=== PATIENT | female | born 1965 | race Caucasian/White ===

== ENCOUNTER → 2018-05-13 09:28 | Outpatient (CLI) | payer OTHER, SELFPAY ==
--- NOTE | 2018-05-13 | DI.RAD.S_ITS ---
PROCEDURE: XR KUB INDICATIONS: KIDNEY STONES TECHNIQUE: One view of the abdomen acquired. COMPARISON: [facility], , KUB XRAY (1 VIEW ABDOMEN), 02/28/2018, 10:49. FINDINGS: Surgical changes and devices: None. Bowel: Bowel gas pattern is normal. Significant stool without obstruction. Soft tissues: The previously identified calcifications overlying the left renal shadow are unchanged. The calcifications overlying the right renal shadow are also unchanged. Calcifications within the pelvis are stable. Visualized solid organ contours appear normal in size. Bones: No suspicious bony lesions. IMPRESSION: Unchanged appearance of calcifications overlying the renal shadows bilaterally. Dictated by: Susie Sanchez M.D. on 05/13/2018 at 10:11 Approved by: Susie Sanchez M.D. on 05/13/2018 at 10:13
== END ==
PROVIDERS: Visit Provider Specialist
DX: N20.0 Calculus of kidney (principal)
CPT/HCPCS: 74018

== ENCOUNTER → 2018-08-01 11:21 | Outpatient (CLI) | payer OTHER, SELFPAY ==
--- NOTE | 2018-08-01 | DI.RAD.S_ITS ---
PROCEDURE: XR KUB INDICATIONS: KIDNEY STONES TECHNIQUE: One view of the abdomen acquired. COMPARISON: [facility], , XR KUB, 05/13/2018, 9:25. FINDINGS: Surgical changes and devices: None. Bowel: Bowel gas pattern is normal. Soft tissues: There are punctate calcific densities projecting over the bilateral renal silhouettes suggestive of nephrolithiasis, which are stable in comparison to exam of 05/13/18. Pelvic phleboliths are noted. Bones: No suspicious bony lesions. Mild degenerative changes of the spine. IMPRESSION: Stable bilateral punctate calcific densities projecting over the renal silhouettes suggestive of punctate bilateral nephrolithiasis. Dictated by: Mack Wang M.D. on 08/01/2018 at 17:15 Approved by: Mack Wang M.D. on 08/01/2018 at 17:20
== END ==
PROVIDERS: Visit Provider Specialist
DX: N20.0 Calculus of kidney (principal)
CPT/HCPCS: 74018

== ENCOUNTER → 2020-02-08 12:07 | Outpatient (CLI) | payer OTHER, SELFPAY ==
--- NOTE | 2020-02-08 | DI.MRI.S_ITS ---
PROCEDURE: MR ANKLE LT WO CON INDICATIONS: LEFT ANKLE INSTABILITY TECHNIQUE: Noncontrast sagittal T1 spin echo and T2 fast spin echo with fat saturation, axial proton density fast spin echo and T2 fast spin echo with fat saturation, coronal T1 spin echo and T2 fast spin echo with fat saturation through the ankle/hindfoot. COMPARISON: [facility], CR, XR ANKLE 3+ VIEWS LEFT, 12/21/2019, 11:20. FINDINGS: Image quality: Excellent. Bones and joints: No bone marrow contusions or fractures. No hindfoot coalitions. No osteochondral injuries of the talar dome. Tibiotalar joint effusion. Mild edema/T2 hyperintensity seen at the lateral aspect of the talonavicular joint of unclear etiology, possibly related to capsular sprain versus atypical synovial or ganglion cyst Medial structures: The posterior tibialis, flexor digitorum longus, and flexor hallucis longus tendons are intact. There is mild posterior tibialis tenosynovitis. The posterior tibial neurovascular bundle appears normal within the tarsal tunnel, without extrinsic mass effect. The deep layer of the deltoid ligament demonstrates mild T2 hyperintense amorphous signal change The spring ligament components (superomedial calcaneonavicular, medioplantar oblique calcaneonavicular, and inferoplantar longitudinal ligaments) are intact. Lateral structures: The anterior talofibular, calcaneofibular, and posterior talofibular ligaments appear intact. More superiorly, the anterior and posterior tibiofibular ligaments appear intact, as is the intermalleolar ligament. The tibiofibular syndesmosis is normal in width at 2 mm or less. The peroneus longus and brevis tendons demonstrate normal location and morphology. Adjacent bony peroneal tubercle and retrotrochlear prominence are normal in size. The sinus tarsi demonstrates normal fatty signal, without edema, fibrosis, or cyst formation. Visualized sinus tarsi components (cervical ligament, interosseous talocalcaneal ligament, roots of the inferior extensor retinaculum) appear normal. The calcaneonavicular and calcaneocuboid components of the bifurcate ligament appear intact. The dorsal calcaneocuboid ligament appears intact. Anterior structures: The tibialis anterior, extensor hallucis longus, and extensor digitorum longus tendons appear intact. The dorsal talonavicular ligament appears intact. Posterior and plantar structures: Achilles tendon is intact. There is minimal insertional tendinopathy and adjacent trace fluid. Medial and lateral bands of the plantar fascia are of normal thickness. No abductor digiti quinti muscle atrophy to suggest Ramirez neuropathy. IMPRESSION: Age-indeterminate sprain of the deltoid ligament complex Low-grade posterior tenosynovitis Ill-defined signal change involving the anterolateral aspect of the talonavicular joint, possibly capsular sprain versus developing or atypical synovial/ganglion cyst Minimal Achilles insertional tendinopathy Tibiotalar joint effusion. Dictated by: Yg Laguna M.D. on 02/08/2020 at 13:59 Approved by: Yg Laguna M.D. on 02/08/2020 at 14:11
== END ==
PROVIDERS: PCP Naturopath; Referring Provider Podiatrist; Visit Provider Podiatrist
DX: M25.372 Other instability, left ankle (principal); S93.422A Sprain of deltoid ligament of left ankle, initial encounter; M65.872 Other synovitis and tenosynovitis, left ankle and foot; M25.472 Effusion, left ankle
CPT/HCPCS: 73721

== ENCOUNTER 2020-08-15 01:13 | Observation (INO) | payer OTHER, SELFPAY ==
[2020-08-15] VITALS (12 sets, daily range): BP systolic 120–198; BP diastolic 76–106; PULSE 79–119; RESP 15–19; TEMP 36.3–37.2; O2SAT 95–100; BMI 25.2; BMI 23.6
--- NOTE | 2020-08-15 01:22 | DI.RAD.S_ITS ---
PROCEDURE: XR CHEST 1V INDICATIONS: Chest pain TECHNIQUE: One view of the chest was acquired. COMPARISON: None. FINDINGS: Surgical changes and devices: None. Lungs and pleura: Lungs are clear. No pleural effusions or pneumothorax. Mediastinum: Mediastinal contours appear normal. Heart size is normal. Bones and chest wall: No suspicious bony lesions. Overlying soft tissues appear unremarkable. IMPRESSION: No acute cardiopulmonary disease process. Dictated by: Helen Carcamo MD, PhD on 08/15/2020 at 8:54 Approved by: Helen Carcamo MD, PhD on 08/15/2020 at 8:56
--- NOTE | 2020-08-15 01:37 | ED_ITS ---
HPI - Arrhythmia/Palpitations General Chief Complaint: Arrhythmia/Palpitations Stated Complaint: states 127 plus heart beats Time Seen by Provider: 08/15/20 01:22 Source: patient and family Limitations: no limitations History of Present Illness HPI narrative: Patient here with . Complains sudden onset 2 hours ago of palpitations and slight discomfort intrascapular late which has resolved. She has an Apple watch and a registered at 165 beats per minute. No chest pain no syncope no dyspnea and no diaphoresis. Discomfort different from past kidney stone back pain. No nausea or vomiting. No urinary complaints. Patient did h ave foot surgery on left side back in April 2020. Has been doing well. Does have history of hypothyroidism and has resumed her thyroid medication levothyroxine without any dose changes in the past 2 months. No prior history of blood pressure or cholesterol or arrhythmias. Patient states unknown history with her family. No history DVT or PE. Patient did see her primary provider for thyroid level recheck today. MD complaint: rapid heart beat, heart racing and palpitations Related Data Home Medications Medication Instructions Recorded Confirmed acetaminophen [Tylenol Extra 1,000 mg PO Q8H 08/15/20 08/15/20 Strength] cyanocobalamin (vitamin B-12) 1,000 mcg PO DAILY 08/15/20 08/15/20 [Vitamin B-12] diclofenac sodium 75 mg PO BID 08/15/20 08/15/20 folic acid 0.4 mg PO DAILY 08/15/20 08/15/20 levothyroxine 50 mcg PO 0500 08/15/20 08/15/20 Allergies Allergy/AdvReac Type Severity Reaction Status Date / Time almond Allergy Verified 08/15/20 03:15 asparagus Allergy Verified 08/15/20 03:15 banana Allergy Verified 08/15/20 03:15 barley Allergy Verified 08/15/20 03:15 castillo Allergy Verified 08/15/20 03:15 Beef Containing Products Allergy Verified 08/15/20 03:15 casein Allergy Verified 08/15/20 03:15 cashew nut Allergy Verified 08/15/20 03:15 cinnamon Allergy Verified 08/15/20 03:15 Egg Derived Allergy Verified 08/15/20 03:15 gabapentin Allergy Verified 08/15/20 01:30 garlic Allergy Verified 08/15/20 03:15 alonso Allergy Verified 08/15/20 03:15 grass pollen-perennial rye, Allergy Verified 08/15/20 03:15 standar iodine Allergy Verified 08/15/20 01:30 lactase [From Dairy Aid] Allergy Verified 08/15/20 03:15 mushroom Allergy Verified 08/15/20 03:15 onion Allergy Verified 08/15/20 03:15 oyster extract Allergy Verified 08/15/20 03:15 Pork/Porcine Containing Allergy Verified 08/15/20 03:15 Products potato Allergy Verified 08/15/20 03:15 soy Allergy Verified 08/15/20 03:15 wheat Allergy Verified 08/15/20 03:15 whey Allergy Verified 08/15/20 03:15 brown rice Allergy Uncoded 08/15/20 03:15 dairy Allergy Uncoded 08/15/20 03:15 goat Allergy Uncoded 08/15/20 03:15 mar Allergy Uncoded 08/15/20 03:15 spelt Allergy Uncoded 08/15/20 03:15 Review of Systems Review of Systems Narrative: GENERAL: Denies chills, fatigue, malaise, fever, sweats. HEENT: Denies sinus pain, ear pain, sore throat, difficulty swallowing, dizziness. RESPIRATORY: Denies dyspnea, cough, wheezing, hemoptysis, sputum. CARDIOVASCULAR: Denies chest pain, complains palpitations, denies orthopnea, edema, GASTROINTESTINAL: Denies nausea, vomiting, abdominal pain, diarrhea, constipation, melena. : Denies dysuria, frequency, incontinence, hematuria, urinary retention. MUSCULOSKELETAL: denies weakness, joint pain, or bony pain SKIN: Denies rash, skin lesions NEUROLOGIC: Denies weakness, headache, numbness, change in speech, confusion, seizures, incoordination. PSYCHIATRIC: No concerning psychosocial issues. ROS Unobtainable: All systems reviewed & are unremarkable except as noted in HPI and below Patient History Surgical History Status post laparoscopy Social History household members: spouse Smoking Status: Never smoker alcohol intake: former Exam Narrative Exam Narrative: GENERAL: patient appears stated age. Well-nourished, well- developed patient, in no distress, not toxic HEAD: Atraumatic. Normocephalic. EYES: Pupils equal round and reactive. Extraocular motions intact. No scleral icterus. No injection or drainage. ENT: Nose without bleeding, purulent drainage. Throat without erythema, tonsi llar hypertrophy or exudate. Airway patent. NECK: Trachea midline. Non tender CARDIOVASCULAR: Tachycardia with Regular rate and rhythm without murmurs, gallops, or rubs. RESPIRATORY: Clear to auscultation. Breath sounds equal bilaterally. No wheezes, rales, or rhonchi. GASTROINTESTINAL: Abdomen soft, non-tender, nondistended. EXTREMITIES: No edema or joint tenderness. Left foot boot removed. No calf tenderness or edema or swelling. BACK: Nontender without deformity or crepitance. No flank tenderness. NEURO: AOx4. SKIN: No rash or erythema of visible areas PSYCH: Not anxious, is cooperative Initial Vital Signs Initial Vital Signs: Vital Signs Temperature 98.5 F 08/15/20 01:20 Pulse Rate 119 H 08/15/20 01:20 Respiratory Rate 17 08/15/20 01:20 Blood Pressure 198/106 H 08/15/20 01:20 Pulse Oximetry 98 08/15/20 01:20 Course Course Course Narrative: No chest pain or intrascapular discomfort at this time. Decision to Admit Date: 08/15/20 Decision to Admit time: 02:20 Orders Ordered: ED Orders 08/15/20 01:22 XR chest 1V Stat EKG-12 Lead Stat 08/15/20 01:30 Complete Blood Count AUTO DIFF Stat Comprehensive Metabolic Panel Stat D Dimer Stat Lipase Stat Thyroid Stimulating Hormone Stat Troponin & CK Cardiac Panel Stat 08/15/20 02:30 COVID19 -ED/INPAT/OR/L&D Stat Acetaminophen (Tylenol) 650 mg PO Q6HR PRN PRN Reason: Fever/Mild Pain (1-3) Acetaminophen (Tylenol) 975 mg PO Q8H PRN PRN Reason: Pain, Mild (1-3) Al Hydrox/Mg Hydrox/Simethicone (Maalox Plus) 30 ml PO Q6HR PRN PRN Reason: Dyspepsia Aspirin (Aspirin Ec) 81 mg PO DAILY YVES Bisacodyl (Dulcolax) 10 mg WV DAILY PRN PRN Reason: Constipation Calcium Carbonate (Tums) 1,000 mg PO Q4HR PRN PRN Reason: Dyspepsia Cyanocobalamin (Vitamin B-12) 1,000 mcg PO DAILY [facility] Diclofenac Sodium (Voltaren) 75 mg PO BID [facility] Docusate Sodium (Colace) 100 mg PO BID PRN PRN Reason: Constipation Enoxaparin Sodium (Lovenox) 40 mg SUBCUT DAILY [facility] Folic Acid (Folic Acid) 0.4 mg PO DAILY [facility] Sodium Chloride (Normal Saline 0.9%) 1,000 mls @ 100 mls/hr IV CONT YVES Last Admin: 08/15/20 03:18 Dose: 100 mls/hr Documented by: AMBER Levothyroxine Sodium (Synthroid) 50 mcg PO 0500 [facility] Magnesium Oxide (Mag Ox) 400 mg PO DAILY [facility] Morphine Sulfate (Morphine) 2 mg IV Q5MIN PRN PRN Reason: Chest Pain Naloxone HCl (Narcan) 0.2 mg IV Q2MIN PRN PRN Reason: Opiate Reversal Nitroglycerin (Nitrostat) 0.4 mg SL [id number] PRN PRN Reason: Chest Pain Ondansetron HCl (Zofran) 4 mg IV Q8HR PRN PRN Reason: Nausea And Vomiting Discontinued Medications Aspirin (Aspirin Chew) 324 mg PO NOW ONE Stop: 08/15/20 02:17 Last Admin: 08/15/20 02:36 Dose: 324 mg Documented by: DIAMOND Magnesium Oxide (Mag Ox) 400 mg PO NOW ONE Stop: 08/15/20 03:55 Last Admin: 08/15/20 04:08 Dose: 400 mg Documented by: AMBER Reevaluation(s) Reevaluation #1: No chest pain at this time. Blood pressures improved. Heart rate 101. D-dimer negative. Reviewed results with patient and . They agreed for observation and stress test Time: 02:20 Consultations Consultation #1: Spoke with cardiology dr dinh, agrees pt for admit Time: :20 Consultation #2: s/w hospitalistVargas, will admit Time: :20 Vital Signs Vital signs: Vital Signs - 8 hr 08/15/20 01:20 08/15/20 01:21 08/15/20 01:30 Temperature 98.5 F Pulse Rate 119 H 108 H 109 H Respiratory Rate 17 16 15 Blood Pressure 198/106 H Pulse Oximetry 98 100 99 08/15/20 01:31 08/15/20 02:00 08/15/20 02:30 Temperature Pulse Rate 110 H 93 H 94 H Respiratory Rate 17 17 19 Blood Pressure 182/96 H 129/80 139/90 Pulse Oximetry 97 98 98 MDM - Arrhythmia/Palpitations Differential Diagnosis Differential diagnosis: Likely palpitations, anxiety, sinus tachycardia, artial fibrillation, artial flutter, supraventricular tachycardia and other (PE) Lab Data Attestation: I reviewed the patient's lab results. Result diagrams: 08/15/20 01:30 08/15/20 01:30 Labs: Lab Results 08/15/20 08/15/20 08/15/20 Range/Units 01:30 01:30 01:30 WBC 8.6 (4.5-11.0) X10^3/uL RBC 3.95 L (4.0-5.2) X10^6/uL Hgb 12.9 (12.0-16.0) g/dL Hct 39.4 (36-46) % MCV 99.9 (80-100) fL MCH 32.6 (26-34) PG MCHC 32.6 (30-36) % RDW 12.7 (11.6-14.8) % Plt Count 321 (150-400) X10^3/uL Neut % (Auto) 90.8 H (50-75) % Lymph % (Auto) 7.9 L (25-40) % Stephenson % (Auto) 1.1 L (3-14) % Eos % (Auto) 0.0 L (2-4) % Baso % (Auto) 0.2 (0-2) % Neut # (Auto) 7900 H (1525-4146) /uL Lymph # (Auto) 700 L (2116-2648) /uL Stephenson # (Auto) 100 (0-900) /uL Eos # (Auto) 0 (0-450) /uL Baso # (Auto) 0 (0-100) /uL D-Dimer 210 (<230) ng/mL Sodium 137 (137-145) mmol/L Potassium 3.9 (3.4-5.1) mmol/L Chloride 101 (98-107) mmol/L Carbon Dioxide 27 (22-32) mmol/L BUN 19 H (7-17) mg/dL Creatinine 0.84 (0.52-1.04) mg/dL Estimated GFR > 60.0 (>60) mL/min BUN/Creatinine Ratio 22.6 H (6-22) Glucose 186 H (70-100) mg/dL Calcium 10.0 (8.4-10.2) mg/dL Magnesium (1.6-2.3) mg/dL Total Bilirubin 0.5 (0.2-1.3) mg/dL AST 51 H (14-36) IU/L ALT 40 H (<35) IU/L Alkaline Phosphatase 92 (38-126) U/L Total Creatine Kinase 68 (30-135) U/L CK-MB (CK-2) TNP CK-MB (CK-2) Rel Index TNP Troponin I < 0.012 (0.01-0.034) ng/mL Total Protein 8.5 H (6.3-8.2) g/dL Albumin 4.6 (3.5-5.0) g/dL Globulin 3.9 (1.7-4.1) g/dL Albumin/Globulin Ratio 1.2 (1.0-2.8) Lipase 181 (23-300) U/L TSH (0.47-4.68) uIU/mL COVID-19 PCR (Negative) 08/15/20 08/15/20 08/15/20 Range/Units 01:30 01:30 02:30 WBC (4.5-11.0) X10^3/uL RBC (4.0-5.2) X10^6/uL Hgb (12.0-16.0) g/dL Hct (36-46) % MCV (80-100) fL MCH (26-34) PG MCHC (30-36) % RDW (11.6-14.8) % Plt Count (150-400) X10^3/uL Neut % (Auto) (50-75) % Lymph % (Auto) (25-40) % Stephenson % (Auto) (3-14) % Eos % (Auto) (2-4) % Baso % (Auto) (0-2) % Neut # (Auto) (8965-4750) /uL Lymph # (Auto) (5347-8689) /uL Stephenson # (Auto) (0-900) /uL Eos # (Auto) (0-450) /uL Baso # (Auto) (0-100) /uL D-Dimer (<230) ng/mL Sodium (137-145) mmol/L Potassium (3.4-5.1) mmol/L Chloride (98-107) mmol/L Carbon Dioxide (22-32) mmol/L BUN (7-17) mg/dL Creatinine (0.52-1.04) mg/dL Estimated GFR (>60) mL/min BUN/Creatinine Ratio (6-22) Glucose (70-100) mg/dL Calcium (8.4-10.2) mg/dL Magnesium 1.8 (1.6-2.3) mg/dL Total Bilirubin (0.2-1.3) mg/dL AST (14-36) IU/L ALT (<35) IU/L Alkaline Phosphatase (38-126) U/L Total Creatine Kinase (30-135) U/L CK-MB (CK-2) CK-MB (CK-2) Rel Index Troponin I (0.01-0.034) ng/mL Total Protein (6.3-8.2) g/dL Albumin (3.5-5.0) g/dL Globulin (1.7-4.1) g/dL Albumin/Globulin Ratio (1.0-2.8) Lipase (23-300) U/L TSH 0.686 (0.47-4.68) uIU/mL COVID-19 PCR Negative (Negative) Imaging Data Chest x-ray: Attestation: I personally reviewed and interpreted this imaging study as follows: My Impression: No acute process ECG Data Attestation: I personally reviewed and interpreted this ECG as follows: Interpretation: Sinus tachycardia, ventricular rate 103. No ST elevation MDM Narrative Medical decision making narrative: Patient with atypical chest pain and palpitations and no prior history of high blood pressure. On none family history of coronary artery disease. Never had stress test before. Appropriate for admission to the hospital today for chemical stress test Discharge Plan Departure Patient Disposition: Admitted as Observation Clinical Impression: Sinus tachycardia, Atypical chest pain Discharge Date/Time: 08/15/20 02:41 Referrals: Brittney Velasquez [Primary Care Provider] - Admit Date/Time: 08/15/20 02:32 Admit Provider: Randy Ojeda
[2020-08-15 01:41] LABS: Add Manual Diff / Slide Review NO; Basophils Absolute Auto 0 /uL (0-100); Basophils Percent Auto 0.2 % (0-2); Eosinophils Absolute Auto 0 /uL (0-450); Hematocrit 39.4 % (36-46); Hemoglobin 12.9 g/dL (12.0-16.0); Lymphocytes Absolute Auto 700 /uL (1100-4500); Lymphocytes Percent Auto 7.9 % (25-40); Mean Corpuscular HGB Conc 32.6 % (30-36); Mean Corpuscular Hemoglobin 32.6 PG (26-34); Mean Corpuscular Volume 99.9 fL (80-100); Monocytes Absolute Auto 100 /uL (0-900); Monocytes Percent Auto 1.1 % (3-14); Neutrophils Absolute Auto 7900 /uL (1500-7000); Neutrophils Percent Auto 90.8 % (50-75); Platelet Count 321 X10^3/uL (150-400); Red Blood Cell Count 3.95 X10^6/uL (4.0-5.2); Red Cell Distribution Width 12.7 % (11.6-14.8); White Blood Cell Count 8.6 X10^3/uL (4.5-11.0)
[2020-08-15 01:50] LABS: D Dimer 210 ng/mL (<230)
[2020-08-15 01:52] LABS: Alanine Aminotransferase 40 IU/L (<35); Albumin 4.6 g/dL (3.5-5.0); Albumin Globulin Ratio 1.2 (1.0-2.8); Alkaline Phosphatase 92 U/L (38-126); Aspartate Aminotransferase 51 IU/L (14-36); BUN Creatinine Ratio 22.6 (6-22); Bilirubin Total 0.5 mg/dL (0.2-1.3); Blood Urea Nitrogen 19 mg/dL (7-17); Carbon Dioxide 27 mmol/L (22-32); Chloride 101 mmol/L (98-107); Creatine Kinase 68 U/L (30-135); Estimated Glomerular Filt Rate > 60.0 mL/min (>60); Globulin 3.9 g/dL (1.7-4.1); Glucose 186 mg/dL (70-100); HEMOLYSIS < 15 (0-50); Lipase 181 U/L (23-300); Potassium 3.9 mmol/L (3.4-5.1); Sodium 137 mmol/L (137-145); Total Protein 8.5 g/dL (6.3-8.2)
[2020-08-15 02:03] LABS: Troponin I < 0.012 ng/mL (0.01-0.034)
[2020-08-15 02:28] LABS: Thyroid Stimulating Hormone 0.686 uIU/mL (0.47-4.68)
[2020-08-15] MEDS: ASPIRIN 81 MG CHEW TAB 324 MG PO (02:36)
[2020-08-15 02:51] LABS: COVID19 -Nasal RAPID Negative (Negative)
[2020-08-15] MEDS: SODIUM CHLORIDE 0.9% 1,000 ML 100 ML IV ×2 (03:18→16:10)
[2020-08-15 03:27] LABS: Magnesium 1.8 mg/dL (1.6-2.3)
[2020-08-15] MEDS: MAGNESIUM OXIDE 400 MG TABLET PO ×2 (04:08→09:42)
[2020-08-15 04:14] LABS: Appearance Urine UA CLEAR; Bilirubin Urine UA NEGATIVE (NEGATIVE); Color Urine UA Straw; Glucose Urine UA NEGATIVE (Negative); Ketones Urine UA NEGATIVE (NEGATIVE); Leukocyte Esterase Urine UA NEGATIVE (NEGATIVE); Nitrite Urine UA NEGATIVE (Negative); Occult Blood Urine UA TRACE-LYSED (Negative); Protein Urine UA NEGATIVE (Negative); Specific Gravity Urine UA <=1.005 (1.000-1.035); Urobilinogen Urine UA 0.2 E.U./dL (0.2); pH Urine UA 6.5 (4.5-8.0)
[2020-08-15 04:15] LABS: Bacteria Urine Occasional (0-1); Culture Indicated Urine Cult Not Indicated; RBC Urine 0-1/HPF (0-5/HPF); Squamous Epithelial Cell Urine 0-1 /HPF (0-5/HPF); WBC Urine 0-1/HPF (0-5/HPF)
--- NOTE | 2020-08-15 04:32 | P.HP_ITS ---
History of Present Illness History of Present Illness Date Patient Seen: 08/15/20 Time Patient Seen: 03:42 Chief complaint: states 127 plus heart beats Narrative: Ms. Jose De Jesus chiu is a 54-year-old female with a past medical history significant for nephrolithiasis, hypothyroidism, Sjogren syndrome and chronic left ankle pain who presents to the ER tonight for complaints of rapid heartbeat. The patient states that she was reading in bed attempting to go sleep when she felt restless and uncomfortable feeling a rapid heartbeat. She put on her Apple watch which gown the heart rate at 130 given up to 165. She felt associated palpitations and feeling queasy. She also describes pain in the middle of her back which she clarifies is different from her previous kidney stone pain and is nonpleuritic and nonradiating. She states the episode lasted about 30 minutes prompting her to to call the triage phone line and sent to the ER for evaluation. The patient reports something somewhat similar occurring in 2004 for upon she was evaluated by cardiology and had an apparent Holter monitor of which the results appeared reassuring per patient report. Patient also has left ankle pain following surgery and April of 2020 for which she wears an orthotic boot and uses a knee scooter. She had a procedure today with injection at 4:00 p.m. and feels this may be participatory. Patient reports no recent fevers or chills, nasal congestion or sore throat. She has had no recent episodes of chest pain or palpitations until the episode tonight which was abrupt in onset. She denies shortness of breath, cough or wheezing. She denies abdominal pain and has known nausea vomiting but experience queasiness during her tachycardia. He has had no did changes in bowel habits but over the last few days has had urgency and frequency. Upon arrival to the ER the patient is afebrile with temperature 98.5?, heart rate of 119, blood pressure 198/106, respirations of 17 and room air saturation of 98%. Chest x-ray is obtained which is unremarkable, EKG finds sinus tachyc ardia [address] or T-wave changes and no Q-waves evident. On laboratory analysis she has white count of 8.6, hemoglobin of 12.9, hematocrit of 39.4 and platelets 321. She has mildly elevated neutrophils at 90.8%. She has a potassium of 3.9 and a BUN of 19 and creatinine is 0.84. Her nonfasting glucose is 186. Her liver functions are all within normal limits. Her D-dimer is 210, total CK is 68 and troponin is less than 0.012. Her thyroid stimulating hormone is 0.686. Dr. Beal is contacted through the emergency department [place] commands admitting the patient for atypical chest pain, aspirin, check troponins and obtain a stress test. The patient's administered aspirin 324 mg in the emergency department. The patient is admitted for the hospital service for further cardiac monitoring and evaluation. Patient History Medical History Hypothyroidism (Acute) Nephrolithiasis (Acute) Sjogren's syndrome (Acute) Surgical History History of exploratory laparotomy (Acute) History of foot surgery (Acute) History of lithotripsy (Acute) Status post laparoscopy Family & Social History Family History (Updated 08/15/20 @ 04:46 by MYRON Mckeon) Father Cancer Mother Obese Grandmother Diabetes mellitus Grandmother Thyroid disease Grandfather Structural disorder of heart Social History: household members spouse Prior Living Arrangements House Safety & Behavioral: Feels Safe in Current Yes Environment Been Physically Hurt or No Threatened By a Person Suicidal Ideation Description None Tobacco & Substance use: Smoking Status Never smoker alcohol intake former Substance Use Type does not use Meds Home Medications and Allergies Home Medications Medication Instructions Recorded Confirmed Type acetaminophen [Tylenol Extra 1,000 mg PO Q8H 08/15/20 08/15/20 History Strength] cyanocobalamin (vitamin B-12) 1,000 mcg PO DAILY 08/15/20 08/15/20 History [Vitamin B-12] diclofenac sodium 75 mg PO BID 08/15/20 08/15/20 History folic acid 0.4 mg PO DAILY 08/15/20 08/15/20 History levothyroxine 50 mcg PO 0500 08/15/20 08/15/20 History Allergies Allergy/AdvReac Type Severity Reaction Status Date / Time almond Allergy Verified 08/15/20 03:15 asparagus Allergy Verified 08/15/20 03:15 banana Allergy Verified 08/15/20 03:15 barley Allergy Verified 08/15/20 03:15 castillo Allergy Verified 08/15/20 03:15 Beef Containing Products Allergy Verified 08/15/20 03:15 casein Allergy Verified 08/15/20 03:15 cashew nut Allergy Verified 08/15/20 03:15 cinnamon Allergy Verified 08/15/20 03:15 Egg Derived Allergy Verified 08/15/20 03:15 gabapentin Allergy Verified 08/15/20 01:30 garlic Allergy Verified 08/15/20 03:15 alonso Allergy Verified 08/15/20 03:15 grass pollen-perennial rye, Allergy Verified 08/15/20 03:15 standar iodine Allergy Verified 08/15/20 01:30 lactase [From Dairy Aid] Allergy Verified 08/15/20 03:15 mushroom Allergy Verified 08/15/20 03:15 onion Allergy Verified 08/15/20 03:15 oyster extract Allergy Verified 08/15/20 03:15 Pork/Porcine Containing Allergy Verified 08/15/20 03:15 Products potato Allergy Verified 08/15/20 03:15 soy Allergy Verified 08/15/20 03:15 wheat Allergy Verified 08/15/20 03:15 whey Allergy Verified 08/15/20 03:15 brown rice Allergy Uncoded 08/15/20 03:15 dairy Allergy Uncoded 08/15/20 03:15 goat Allergy Uncoded 08/15/20 03:15 mar Allergy Uncoded 08/15/20 03:15 spelt Allergy Uncoded 08/15/20 03:15 Review of Systems Review of Systems ROS: Yes All systems reviewed with the patient and are negative except as otherwise documented Exam Vital Signs (past 8 hours): - 08/15/20 01:20 08/15/20 01:21 08/15/20 01:30 Temperature 98.5 F Pulse Rate 119 H 108 H 109 H Respiratory Rate 17 16 15 Blood Pressure 198/106 H Pulse Oximetry 98 100 99 08/15/20 01:31 08/15/20 02:00 08/15/20 02:30 Temperature Pulse Rate 110 H 93 H 94 H Respiratory Rate 17 17 19 Blood Pressure 182/96 H 129/80 139/90 Pulse Oximetry 97 98 98 08/15/20 02:40 Temperature 97.5 F L Pulse Rate 115 H Respiratory Rate 18 Blood Pressure 154/101 H Pulse Oximetry 100 Oxygen Delivery Method Room Air Oxygen Flow Rate 0 Narrative Exam Narrative: GENERAL APPEARANCE: well developed, well nourished, in no acute distress. HEENT: Normocephalic, PERRLA, conjunctiva clear, EOMs intact without nystagmus, no sinus tenderness to percussion, no rhinorrhea, mucous membranes are pink and moist NECK/THYROID: neck supple, no JVD, no thyromegaly, trachea midline. LYMPH NODES: no cervical or supraclavicular lymphadenopathy. SKIN: [place], warm and dry, no visible rashes HEART: regular rate and rhythm, S1-S2, no murmur, no rubs or gallops, brisk capillary refill, no edema LUNGS: clear to auscultation bilaterally, no coarseness crackles or wheezing, no cough present CHEST: Symmetrical movement, no accessory muscle use, good tidal volume. ABDOMEN: Soft, no distention, no abdominal tenderness, no guarding or peritoneal signs, no organomegaly, no flank or suprapubic tenderness, active bowel tones. BACK: Normal curvature, nontender to palpation, no CVA tenderness on percussion EXTREMITIES: Surgical scar left lateral malleolus, decreased movement left foot, can 1st and 2nd toes, no dorsal plantar flexion of left foot, right foot strength is 5/5. NEUROLOGIC: AAO x4, cranial nerves II-XII grossly intact, sensation intact to light touch, hearing grossly normal to speech. PSYCH: Anxious, somewhat tangential thought process, cooperative, stable behavior Objective Labs Result Diagrams: 08/15/20 01:30 08/15/20 01:30 Labs: Laboratory Results - last 24 hr 08/15/20 08/15/20 08/15/20 01:30 01:30 01:30 WBC 8.6 RBC 3.95 L Hgb 12.9 Hct 39.4 MCV 99.9 MCH 32.6 MCHC 32.6 RDW 12.7 Plt Count 321 Neut % (Auto) 90.8 H Lymph % (Auto) 7.9 L [place] % (Auto) 1.1 L Eos % (Auto) 0.0 L Baso % (Auto) 0.2 Neut # (Auto) 7900 H Lymph # (Auto) 700 L [place] # (Auto) 100 Eos # (Auto) 0 Baso # (Auto) 0 D-Dimer 210 Sodium 137 Potassium 3.9 Chloride 101 Carbon Dioxide 27 BUN 19 H Creatinine 0.84 Estimated GFR > 60.0 BUN/Creatinine Ratio 22.6 H Glucose 186 H Calcium 10.0 Magnesium Total Bilirubin 0.5 AST 51 H ALT 40 H Alkaline Phosphatase 92 Total Creatine Kinase 68 CK-MB (CK-2) TNP CK-MB (CK-2) Rel Index TNP Troponin I < 0.012 Total Protein 8.5 H Albumin 4.6 Globulin 3.9 Albumin/Globulin Ratio 1.2 Lipase 181 TSH Urine Color Urine Appearance Urine pH Ur Specific [place] Urine Protein Urine Glucose (UA) Urine Ketones Urine Occult Blood Urine Nitrate Urine Bilirubin Urine Urobilinogen Ur Leukocyte Esterase Urine RBC Urine WBC Ur Squamous Epith Cells Urine Bacteria Ur Culture Indicated? COVID-19 PCR 08/15/20 08/15/20 08/15/20 01:30 01:30 02:30 WBC RBC Hgb Hct MCV MCH MCHC RDW Plt Count Neut % (Auto) Lymph % (Auto) [place] % (Auto) Eos % (Auto) Baso % (Auto) Neut # (Auto) Lymph # (Auto) [place] # (Auto) Eos # (Auto) Baso # (Auto) D-Dimer Sodium Potassium Chloride Carbon Dioxide BUN Creatinine Estimated GFR BUN/Creatinine Ratio Glucose Calcium Magnesium 1.8 Total Bilirubin AST ALT Alkaline Phosphatase Total Creatine Kinase CK-MB (CK-2) CK-MB (CK-2) Rel Index Troponin I Total Protein Albumin Globulin Albumin/Globulin Ratio Lipase TSH 0.686 Urine Color Urine Appearance Urine pH Ur Specific [place] Urine Protein Urine Glucose (UA) Urine Ketones Urine Occult Blood Urine Nitrate Urine Bilirubin Urine Urobilinogen Ur Leukocyte Esterase Urine RBC Urine WBC Ur Squamous Epith Cells Urine Bacteria Ur Culture Indicated? COVID-19 PCR Negative 08/15/20 03:50 WBC RBC Hgb Hct MCV MCH MCHC RDW Plt Count Neut % (Auto) Lymph % (Auto) [place] % (Auto) Eos % (Auto) Baso % (Auto) Neut # (Auto) Lymph # (Auto) [place] # (Auto) Eos # (Auto) Baso # (Auto) D-Dimer Sodium Potassium Chloride Carbon Dioxide BUN Creatinine Estimated GFR BUN/Creatinine Ratio Glucose Calcium Magnesium Total Bilirubin AST ALT Alkaline Phosphatase Total Creatine Kinase CK-MB (CK-2) CK-MB (CK-2) Rel Index Troponin I Total Protein Albumin Globulin Albumin/Globulin Ratio Lipase TSH Urine Color Straw Urine Appearance Clear Urine pH 6.5 Ur Specific [place] <=1.005 Urine Protein Negative Urine Glucose (UA) Negative Urine Ketones Negative Urine Occult Blood Trace-lysed Urine Nitrate Negative Urine Bilirubin Negative Urine Urobilinogen 0.2 Ur Leukocyte Esterase Negative Urine RBC 0-1/hpf Urine WBC 0-1/hpf Ur Squamous Epith Cells 0-1 /hpf Urine Bacteria Occasional (0-1) Ur Culture Indicated? Cult not indicated COVID-19 PCR Assessment & Plan Assessment & Plan narrative: This is a 54-year-old female with a remote history of cardiac arrhythmia and presents to the ER tonight with an abrupt onset of a rapid heartbeat reportedly up to 165 tract on her Apple wrist watch which correlated with monitor upon arrival to the ER with associated palpitations, mid back pain and mild nausea. 1. Tachyarrhythmia, sinus tachycardia upon arrival to ER, present on admission, active -abrupt in onset while at rest, patient reports heart rate between 130s to 165, associated palpitations, mild nausea, pain mid back that is nonpleuritic nonradiating. -12 lead EKG finds sinus tach the ventricular rate of [address] or T-wave changes and no Q-waves. Initial troponin is negative at less than 0.012. -Dr. Beal his contact through the emergency department who recommends o vernight observation aspirin, rule out with troponins and a stress test in the morning. -patient received aspirin 324 mg in the emergency department, ordered aspirin 81 mg daily. -ordered troponins every 4 hours x2. -order nuclear med stress test will be chemically stressed due to inability to ambulate related to left ankle pain. -thyroid has been checked and found to 0.686, will obtain hemoglobin A1c. -stress test ordered, patient will be NPO. Ordered normal saline 100 cc/hour 2. Acquired hypothyroidism, stable -thyroid level checked and 0.8 686. -continue home regimen levothyroxine 50 mcg daily. 3. Sjogren syndrome, stable. -patient does not demonstrate symptoms of autonomic neuropathy. -tachyarrhythmia began at rest, will obtain orthostatic vital signs. VTE: Enoxaparin IV fluid: Normal saline 100 cc/hour Diet: NPO for cardiac testing Code status: Full code, patient designates her be surrogate decision maker. The patient is admitted to the hospital with atypical chest pain in the setting of tachyarrhythmia requiring further evaluation and monitoring. The patient is admitted as observation with expected length of stay to be less than 2 midnights. COVID-19 COVID-19 status: Negative Result date/Date tested (Pos, Neg/Pending): 08/15/20 Scores [facility] [place] coma scale eye opening: Spontaneous [place] coma scale verbal response: Orientated [place] coma scale motor response: Obey commands [place] coma scale total score: 15
[2020-08-15] MEDS: LEVOTHYROXINE 50 MCG TABLET PO (05:03)
[2020-08-15] MEDS: ACETAMINOPHEN 325 MG TABLET 975 MG PO ×2 (05:03→15:02)
--- NOTE | 2020-08-15 05:25 | PC.ADMIT ---
Patient admitted to room 219 per wheelchair from ER. Came to ER related to having heart palpitations with HR into 160 range. Currently HR 115 and BP elevated at 154/101. Is alert and oriented. Breath sounds CTA with RA sat of 100%; on continuous oximetry. HRR; telemetry reading at 0400 was SR w/1st degree AVB. Denies nausea. BT present and abdomen is soft. States she has been having some urinary frequency but denies dysuria; UA sent to lab for analysis. Is able to move herself in bed. [place] [facility] [place] Had surgery on left foot in April 2020 and now has limited ROM/strength in foot. States she had injections into foot/ankle yesterday and has some tingling/numbness of left foot. States pain in left foot/lower back is chronic and rates severity as 3/10. When up at home wears a brace/boot to left LE and uses crutches for mobility. Reports having fallen in late June so is at high risk for falls and bed alarm is activated. Bilateral calf SCD's applied. Is currently NPO as will be having a NM stress test later today; verbalizes understanding. Oriented to bed controls and call light. [id number] Admission Note: The patient,Jose De Jesus Burgos,54 y/o, was given written information regarding hospital policies, unit procedures and contact persons. Patient's smoking status: Never smoker. Vital Signs - 8 hr 08/15/20 01:20 08/15/20 01:21 08/15/20 01:30 Temperature 98.5 F Pulse Rate 119 H 108 H 109 H Respiratory Rate 17 16 15 Blood Pressure 198/106 H Pulse Oximetry 98 100 99 08/15/20 01:31 08/15/20 02:00 08/15/20 02:30 Temperature Pulse Rate 110 H 93 H 94 H Respiratory Rate 17 17 19 Blood Pressure 182/96 H 129/80 139/90 Pulse Oximetry 97 98 98 08/15/20 02:40 Temperature 97.5 F L Pulse Rate 115 H Respiratory Rate 18 Blood Pressure 154/101 H Pulse Oximetry 100
[2020-08-15 06:21] LABS: Cholesterol 195 mg/dL (140-199); HDL Cholesterol 70 mg/dL (40-60); LDL Cholesterol Calculated 115 mg/dL (<100); Triglycerides 50 mg/dL (35-150)
[2020-08-15 06:31] LABS: Troponin I < 0.012 ng/mL (0.01-0.034)
[2020-08-15] MEDS: DICLOFENAC 75 MG DR TABLET PO (09:42)
[2020-08-15] MEDS: ASPIRIN EC 81 MG TABLET PO (09:42)
[2020-08-15] MEDS: FOLIC ACID 0.4 MG TABLET PO (09:42)
[2020-08-15] MEDS: CYANOCOBALAMIN (VITAMIN B-12) 500 MCG TABLET 1000 MCG PO (09:42)
[2020-08-15] MEDS: ENOXAPARIN 40 MG/0.4 ML SYRINGE SUBCUT (09:43)
[2020-08-15 10:31] LABS: Troponin I < 0.012 ng/mL (0.01-0.034)
--- NOTE | 2020-08-15 11:04 | PC.NURSE ---
Patient denies pain or chest discomfort. She will be going down for the second part of her stress test at 1245. She has many allergies to foods and is talking with the golf cart maker now. Patient also had an ankle surgery in April and continues to be nwb, so she must wear her boot when she is up ambulating, except while using the commode.
--- NOTE | 2020-08-15 12:05 | CM.DANOTE ---
Addendum entered by Nika Lees LPN 08/15/20 12:13: A check in now shows pt preparing to go for 2nd part of stress test. Original Note: Discharge Planning/Care Management DCP: assessment: case received, EMR/limited info available/reviewed. Dr. Hobbs stated in Team Rounds that pt would have a stress test today and then likely a d/c home. He planned to meet with pt later. Pt is a 54 year old female who admitted early this morning to care of hospitalist team. Payer: Miriam Mayer PCP: listed as Brittney Velasquez Next of Kin: [place]. P: will follow prn after more is known to assist with any d/c needs that may arise. CM Discharge Assessment Start: 08/15/20 12:04 Freq: Status: Active Protocol: Document 08/15/20 12:05 ITV (Rec: 08/15/20 12:05 ITV [id number]) Discharge Planning Assessment Advance Directives? No History Provided By Medical Record Prior Living Arrangements House Household Members spouse Review Status In Process
--- NOTE | 2020-08-15 17:40 | PM.DS.1 ---
History of Present Illness History of Present Illness Date Patient Seen: 08/15/20 Time Patient Seen: 17:40 Chief complaint: states 127 plus heart beats Narrative: Ms. Jose De Jesus chiu is a 54-year-old female with a past medical history significant for nephrolithiasis, hypothyroidism, Sjogren syndrome and chronic left ankle pain who presents to the ER tonight for complaints of rapid heartbeat. The patient states that she was reading in bed attempting to go sleep when she felt restless and uncomfortable feeling a rapid heartbeat. She put on her Apple watch which gown the heart rate at 130 given up to 165. She felt associated palpitations and feeling queasy. She also describes pain in the middle of her back which she clarifies is different from her previous kidney stone pain and is nonpleuritic and nonradiating. She states the episode lasted about 30 minutes prompting her to to call the triage phone line and sent to the ER for evaluation. The patient reports something somewhat similar occurring in 2004 for upon she was evaluated by cardiology and had an apparent Holter monitor of which the results appeared reassuring per patient report. Patient also has left ankle pain following surgery and April of 2020 for which she wears an orthotic boot and uses a knee scooter. She had a procedure today with injection at 4:00 p.m. and feels this may be participatory. Patient reports no recent fevers or chills, nasal congestion or sore throat. She has had no recent episodes of chest pain or palpitations until the episode tonight which was abrupt in onset. She denies shortness of breath, cough or wheezing. She denies abdominal pain and has known nausea vomiting but experience queasiness during her tachycardia. He has had no did changes in bowel habits but over the last few days has had urgency and frequency. Upon arrival to the ER the patient is afebrile with temperature 98.5?, heart rate of 119, blood pressure 198/106, respirations of 17 and room air saturation of 98%. Chest x-ray is obtained which is unremarkable, EKG finds sinus tachycardia [address] or T-wave changes and no Q-waves evident. On laboratory analysis she has white count of 8.6, hemoglobin of 12.9, hematocrit of 39.4 and platelets 321. She has mildly elevated neutrophils at 90.8%. She has a potassium of 3.9 and a BUN of 19 and creatinine is 0.84. Her nonfasting glucose is 186. Her liver functions are all within normal limits. Her D-dimer is 210, total CK is 68 and troponin is less than 0.012. Her thyroid stimulating hormone is 0.686. Dr. Beal is contacted through the emergency department [place] commands admitting the patient for atypical chest pain, aspirin, check troponins and obtain a stress test. The patient's administered aspirin 324 mg in the emergency department. The patient is admitted for the hospital service for further cardiac monitoring and evaluation. Discharge Providers Provider Date of admission: 08/15/20 02:32 Discharge Date: 08/15/20 Primary care physician: Brittney Velasquez Discharge provider: Randy Hobbs DO Summary Hospital Course Discharge Diagnosis: 1. Sinus tachycardia, present on admission 2. Acquired hypothyroidism, stable 3. Sjogren syndrome, chronic, stable 4. Chronic L ankle pain, present on admission. Hospital Course: This is a 54-year-old female with a remote history of cardiac arrhythmia and presented to the ER with an abrupt onset of a rapid heartbeat reportedly up to 165 tract on her Apple wrist watch which correlated with monitor upon arrival to the ER with associated palpitations, mid back pain and mild nausea. The patient was resting in bed at the time of the event and her tachycardia continued for a few hours. Early in the day she had undergone an injection in her left ankle which included a cocktail of anti-inflammatories and pain medicines according to the patient. The patient also reports increased stress and anxiety. She underwent a cardiac stress test which was unremarkable and deemed low risk. At the recommendation of Cardiology she was started on a beta-ajit and will follow-up with her primary care provider. Patient's heart rate had improved even without medications on discharge. Exam Vital Signs (past 8 hours): - 08/15/20 10:37 08/15/20 11:00 08/15/20 15:32 Temperature 97.3 F L 97.7 F Pulse Rate 90 84 Pulse Rate [Orthostatic Lying] 79 Pulse Rate [Orthostatic Sitting] 90 Pulse Rate [Orthostatic Standing] 95 H Respiratory Rate 16 16 Blood Pressure 158/82 H 120/76 Blood Pressure [Orthostatic Lying] 141/91 H Blood Pressure [Orthostatic Sitting] 158/82 H Blood Pressure [Orthostatic Standing] 152/90 H Pulse Oximetry 100 95 Oxygen Delivery Method Room Air Oxygen Flow Rate 0 Narrative Exam Narrative: GENERAL APPEARANCE: well developed, well nourished, in no acute distress. HEENT: Normocephalic, PERRLA, conjunctiva clear, EOMs intact without nystagmus, no sinus tenderness to percussion, no rhinorrhea, mucous membranes are pink and moist NECK/THYROID: neck supple, no JVD, no thyromegaly, trachea midline. LYMPH NODES: no cervical or supraclavicular lymphadenopathy. SKIN: [place], warm and dry, no visible rashes HEART: regular rate and rhythm, S1-S2, no murmur, no rubs or gallops, brisk capillary refill, no edema LUNGS: clear to auscultation bilaterally, no coarseness crackles or wheezing, no cough present CHEST: Symmetrical movement, no accessory muscle use, good tidal volume. ABDOMEN: Soft, no distention, no abdominal tenderness, no guarding or peritoneal signs, no organomegaly, no flank or suprapubic tenderness, active bowel tones. BACK: Normal curvature, nontender to palpation, no CVA tenderness on percussion EXTREMITIES: Surgical scar left lateral malleolus, decreased movement left foot, can 1st and 2nd toes, no dorsal plantar flexion of left foot, right foot strength is 5/5. NEUROLOGIC: AAO x4, cranial nerves II-XII grossly intact, sensation intact to light touch, hearing grossly normal to speech. PSYCH: Anxious, somewhat tangential thought process, cooperative, stable behavior Objective Labs Result Diagrams: 08/15/20 01:30 08/15/20 01:30 Labs: Laboratory Results - last 24 hr 08/15/20 08/15/20 08/15/20 01:30 01:30 01:30 WBC 8.6 RBC 3.95 L Hgb 12.9 Hct 39.4 MCV 99.9 MCH 32.6 MCHC 32.6 RDW 12.7 Plt Count 321 Neut % (Auto) 90.8 H Lymph % (Auto) 7.9 L [place] % (Auto) 1.1 L Eos % (Auto) 0.0 L Baso % (Auto) 0.2 Neut # (Auto) 7900 H Lymph # (Auto) 700 L [place] # (Auto) 100 Eos # (Auto) 0 Baso # (Auto) 0 D-Dimer 210 Sodium 137 Potassium 3.9 Chloride 101 Carbon Dioxide 27 BUN 19 H Creatinine 0.84 Estimated GFR > 60.0 BUN/Creatinine Ratio 22.6 H Glucose 186 H Hemoglobin A1c Calcium 10.0 Magnesium Total Bilirubin 0.5 AST 51 H ALT 40 H Alkaline Phosphatase 92 Total Creatine Kinase 68 CK-MB (CK-2) TNP CK-MB (CK-2) Rel Index TNP Troponin I < 0.012 Total Protein 8.5 H Albumin 4.6 Globulin 3.9 Albumin/Globulin Ratio 1.2 Triglycerides Cholesterol LDL Cholesterol, Calc HDL Cholesterol Lipase 181 TSH Urine Color Urine Appearance Urine pH Ur Specific [place] Urine Protein Urine Glucose (UA) Urine Ketones Urine Occult Blood Urine Nitrate Urine Bilirubin Urine Urobilinogen Ur Leukocyte Esterase Urine RBC Urine WBC Ur Squamous Epith Cells Urine Bacteria Ur Culture Indicated? COVID-19 PCR 08/15/20 08/15/20 08/15/20 01:30 01:30 01:30 WBC RBC Hgb Hct MCV MCH MCHC RDW Plt Count Neut % (Auto) Lymph % (Auto) [place] % (Auto) Eos % (Auto) Baso % (Auto) Neut # (Auto) Lymph # (Auto) [place] # (Auto) Eos # (Auto) Baso # (Auto) D-Dimer Sodium Potassium Chloride Carbon Dioxide BUN Creatinine Estimated GFR BUN/Creatinine Ratio Glucose Hemoglobin A1c 5.0 Calcium Magnesium 1.8 Total Bilirubin AST ALT Alkaline Phosphatase Total Creatine Kinase CK-MB (CK-2) CK-MB (CK-2) Rel Index Troponin I Total Protein Albumin Globulin Albumin/Globulin Ratio Triglycerides Cholesterol LDL Cholesterol, Calc HDL Cholesterol Lipase TSH 0.686 Urine Color Urine Appearance Urine pH Ur Specific [place] Urine Protein Urine Glucose (UA) Urine Ketones Urine Occult Blood Urine Nitrate Urine Bilirubin Urine Urobilinogen Ur Leukocyte Esterase Urine RBC Urine WBC Ur Squamous Epith Cells Urine Bacteria Ur Culture Indicated? COVID-19 PCR 08/15/20 08/15/20 08/15/20 02:30 03:50 05:25 WBC RBC Hgb Hct MCV MCH MCHC RDW Plt Count Neut % (Auto) Lymph % (Auto) [place] % (Auto) Eos % (Auto) Baso % (Auto) Neut # (Auto) Lymph # (Auto) [place] # (Auto) Eos # (Auto) Baso # (Auto) D-Dimer Sodium Potassium Chloride Carbon Dioxide BUN Creatinine Estimated GFR BUN/Creatinine Ratio Glucose Hemoglobin A1c Calcium Magnesium Total Bilirubin AST ALT Alkaline Phosphatase Total Creatine Kinase CK-MB (CK-2) CK-MB (CK-2) Rel Index Troponin I < 0.012 Total Protein Albumin Globulin Albumin/Globulin Ratio Triglycerides 50 Cholesterol 195 LDL Cholesterol, Calc 115 H HDL Cholesterol 70 H Lipase TSH Urine Color Straw Urine Appearance Clear Urine pH 6.5 Ur Specific [place] <=1.005 Urine Protein Negative Urine Glucose (UA) Negative Urine Ketones Negative Urine Occult Blood Trace-lysed Urine Nitrate Negative Urine Bilirubin Negative Urine Urobilinogen 0.2 Ur Leukocyte Esterase Negative Urine RBC 0-1/hpf Urine WBC 0-1/hpf Ur Squamous Epith Cells 0-1 /hpf Urine Bacteria Occasional (0-1) Ur Culture Indicated? Cult not indicated COVID-19 PCR Negative 08/15/20 09:25 WBC RBC Hgb Hct MCV MCH MCHC RDW Plt Count Neut % (Auto) Lymph % (Auto) [place] % (Auto) Eos % (Auto) Baso % (Auto) Neut # (Auto) Lymph # (Auto) [place] # (Auto) Eos # (Auto) Baso # (Auto) D-Dimer Sodium Potassium Chloride Carbon Dioxide BUN Creatinine Estimated GFR BUN/Creatinine Ratio Glucose Hemoglobin A1c Calcium Magnesium Total Bilirubin AST ALT Alkaline Phosphatase Total Creatine Kinase CK-MB (CK-2) CK-MB (CK-2) Rel Index Troponin I < 0.012 Total Protein Albumin Globulin Albumin/Globulin Ratio Triglycerides Cholesterol LDL Cholesterol, Calc HDL Cholesterol Lipase TSH Urine Color Urine Appearance Urine pH Ur Specific [place] Urine Protein Urine Glucose (UA) Urine Ketones Urine Occult Blood Urine Nitrate Urine Bilirubin Urine Urobilinogen Ur Leukocyte Esterase Urine RBC Urine WBC Ur Squamous Epith Cells Urine Bacteria Ur Culture Indicated? COVID-19 PCR Discharge Plan Discharge Plan Patient Disposition: Home Discharge comment: You were admitted to the hospital with a fast heart rate. You underwent a stress test which was low risk. You will be started on a beta ajit, if you have dizziness or a low heart rate when starting please stop this medication. Discharge orders & Medications Prescriptions: New metoprolol succinate 25 mg tablet extended release 24 hr 25 mg PO DAILY 30 Days Qty: 30 RF: 0 Continued levothyroxine 50 mcg Tablet 50 mcg PO 0500 RF: 0 diclofenac sodium 75 mg Tablet,Delayed Release (Dr/Ec) 75 mg PO BID RF: 0 cyanocobalamin (vitamin B-12) [Vitamin B-12] 1,000 mcg Tablet 1,000 mcg PO DAILY RF: 0 folic acid 400 mcg Tablet 0.4 mg PO DAILY RF: 0 acetaminophen [Tylenol Extra Strength] 500 mg Tablet 1,000 mg PO Q8H RF: 0 Follow up/Referrals: Brittney Velasquez [Primary Care Provider] - Diet/Activity/Treatments Diet: Diet as Tolerated Activity: As tolerated Visit Report/Discharge Packet Instructions: Tachycardia, DI for Chest Pain Visit Report Forms: Patient Portal/API, Stroke Signs & Symptoms Discharge Data Primary Care Provider: Brittney Velasquez Attending Provider: Randy Ojeda Admit Date/Time: 08/15/20 02:32 Discharges patient from system. Discharge Date/Time: 08/15/20 18:30
--- NOTE | 2020-08-15 18:40 | PC.NURSE ---
Discharge/Evening Shift Note- Patient discharged home per MD. Discharge instructions and educations reviewed with patient and signed. New Rx faxed to [facility] in [place]. IV line removed and bandage applied. Tele monitor removed. Patient dressed self and packed up all personal belongings. Patients own medicaitons retreved from pharmacy. Patient taken by this RN via wheelchair with all personal belongings to private car and spouse waiting.
--- NOTE | 2020-08-15 18:54 | DI.NM.S_ITS ---
DATE OF SERVICE: 08/15/2020 PROCEDURE: Pharmacological perfusion study. INDICATION: Palpitation, chest pain, tachycardia, hypertension. RADIOPHARMACEUTICAL: 26.9 millicurie technetium-99m Myoview IV was injected at stress and 10.4 millicurie technetium-99m Myoview IV was injected at rest. CARDIAC STRESS: The patient underwent exercise perfusion study under the supervision of an attending staff. Patient received IV Lexiscan, as per standard protocol. She remained hemodynamically stable. She felt some discomfort in the left shoulder, which got better in recovery. Baseline rhythm was mild sinus tachycardia with heart rate of about 100 and some PACs. During stress, no convincing ischemic changes. Heart rate increased up to 140 beats per minute with sinus tachycardia. No significant sustained arrhythmias seen. Occasional PVCs were seen. RAW DATA: There was breast shadow seen. GATED STUDY: Resting LV ejection fraction 83 and stress LV ejection fraction 87 percent. Resting end-diastolic volume 94 mL. TID ratio 0.80, which is within normal limits. Lung/heart ratio 0.18, which is within normal limits. MYOCARDIAL PERFUSION: Resting supine images revealed a small size mildly decreased perfusion of the anterior wall. Stress supine images revealed minimally decreased perfusion of distal anterior wall. During prone images, anterior wall defect got resolved. There was no convincing ischemia or infarction. CONCLUSION: I will call this study likely a normal myocardial perfusion study with evidence of breast tissue attenuation artifact which got resolved during prone images. Baseline sinus tachycardia. As far as perfusion scan is concerned, this is a low-risk myocardial perfusion scan. Jose De Jesus Burgos - Win/marcel doc#: [id number]/job#: [id number] dd: 08/15/2020 17:17:00 dt: 08/15/2020 18:42:00 DICTATING MD/COPIES TO: Omari Beal MD COPIES MNE: MICK;
== END 2020-08-15 18:30 | disposition home or self-care (01) ==
LOC: ED 02:19 → AC 02:34
PROVIDERS: Admitting Provider Nurse Practitioner Adult Health; Emergency Provider Emergency Medicine; PCP Naturopath; Referring Provider Emergency Medicine; Visit Provider Nurse Practitioner Adult Health
DX: R00.0 Tachycardia, unspecified (principal); R00.2 Palpitations; M35.00 Sjogren syndrome, unspecified; E03.9 Hypothyroidism, unspecified; Z11.59 Encounter for screening for other viral diseases
CPT/HCPCS: 36415; 71045; 78452; 80053; 80061; 81001; 82550; 83036; 83690; 83735; 84443; 84484; 85025; 85379; 87635; 93005; 93017; 96360; 96361; 96372; 99284; G0378; A9502; J1650; J2785

== ENCOUNTER → 2020-10-08 09:45 | Outpatient (CLI) | payer OTHER, SELFPAY ==
[2020-08-15 02:45] VITALS: BMI 23.6
--- NOTE | 2020-10-08 09:47 | DI.NM.S_ITS ---
PROCEDURE: NM BONE 3 PHASE RADIOPHARMACEUTICAL: 21.4 mCi Tc-99m MDP IV. INDICATIONS: Pain in left foot TECHNIQUE: Multiple bone scintigrams were obtained after intravenous injection of Tc-99m MDP, including flow, blood pool, and delayed images centered to the region of interest. COMPARISON: [facility], MR, MR ANKLE LT WO CON, 02/08/2020, 12:40. [facility] [place], CR, XR FOOT 3+ VIEWS LEFT, 08/26/2020, 10:37. [facility] [place], CR, XR ANKLE 1 OR 2 VIEWS LEFT, 08/26/2020, 10:40. FINDINGS: There is mild elevated bone scan isotope deposition at the ankle joint level, which appears slightly greater on the left than the right. On lateral view imaging a definite left-sided calcaneal area of abnormal isotope deposition is not found. 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 No definite calcaneal abnormality is found. No sign of underlying infection seen on blood flow and blood pool imaging. Dictated by: Rusty Brunson M.D. on 10/09/2020 at 12:05 Approved by: Rusty Brunson M.D. on 10/09/2020 at 12:09
== END ==
PROVIDERS: PCP Naturopath; Referring Provider Podiatrist; Visit Provider Podiatrist
DX: M79.672 Pain in left foot (principal); M19.072 Primary osteoarthritis, left ankle and foot; M19.071 Primary osteoarthritis, right ankle and foot
CPT/HCPCS: 78315; A9503

== ENCOUNTER 2021-06-23 13:46 | Emergency (ER) | payer OTHER, SELFPAY ==
[2020-08-15 02:45] VITALS: BMI 23.6
[2021-06-23 14:19] VITALS: BP 182/87; PULSE 65; RESP 17; TEMP 36.6; O2SAT 100; BMI 24.2
--- NOTE | 2021-06-23 16:27 | DI.RAD.S_ITS ---
PROCEDURE: XR ACUTE ABDOMEN SERIES INDICATIONS: no BM since TECHNIQUE: One view chest and two views of the abdomen were acquired. COMPARISON: [facility], CR, XR ABDOMEN 1 VIEW, 06/16/2018, 9:47. [facility] [place], CR, XR LUMBAR SPINE 2 OR 3 VIEWS, 01/10/2020, 9:15. FINDINGS: Surgical changes and devices: None. Chest: Lungs are clear. Heart size is normal. No pleural effusions. No pneumoperitoneum. Abdomen: Bowel gas pattern is normal. There is a moderate to moderate amount of stool seen within the colon. Nonobstructing bilateral renal stones are seen, which measure up to 3 mm on the right and up to 2 mm on the left. Visualized solid organ contours appear normal. Bones: No suspicious bony lesions. S-shaped scoliotic curvature is seen. Age-appropriate bony degenerative changes are seen. IMPRESSION: There is a moderate to prominent amount of stool seen within the colon, which is consistent with the given history. Nonobstructing bilateral renal stones can be seen. Dictated by: Garrett Hoskins M.D. on 06/23/2021 at 15:56 Approved by: Garrett Hoskins M.D. on 06/23/2021 at 15:58
--- NOTE | 2021-06-23 16:35 | ED.RECABL ---
HPI - Recheck/Abnormal Lab/Rx General Chief Complaint: Recheck/Abnormal Lab/Rx Stated Complaint: Severe Constipation from Medication Time Seen by Provider: 06/23/21 16:12 Source: patient Mode of arrival: Wheelchair History of Present Illness HPI narrative: 55-year-old female who recently underwent a left lower extremity orthopedic procedure who is here for evaluation of constipation. She has been taking her pain medication. She also took some milk of magnesia however has not had a bowel movement 4 days. No vomiting. No fevers. Does feel like her abdomen is distended. Related Data Home Medications Medication Instructions Recorded Confirmed acetaminophen 500 mg tablet 1,000 mg PO Q8H 08/15/20 08/15/20 (Tylenol Extra Strength) cyanocobalamin (vitamin B-12) 1,000 mcg PO DAILY 08/15/20 08/15/20 1,000 mcg tablet (Vitamin B-12) diclofenac sodium 75 mg 75 mg PO BID 08/15/20 08/15/20 tablet,delayed release folic acid 400 mcg tablet 0.4 mg PO DAILY 08/15/20 08/15/20 levothyroxine 50 mcg tablet 50 mcg PO 0500 08/15/20 08/15/20 Allergies Allergy/AdvReac Type Severity Reaction Status Date / Time almond Allergy Verified 06/23/21 14:22 asparagus Allergy Verified 06/23/21 14:22 banana Allergy Verified 06/23/21 14:22 barley Allergy Verified 06/23/21 14:22 castillo Allergy Verified 06/23/21 14:22 Beef Containing Products Allergy Verified 06/23/21 14:22 casein Allergy Verified 06/23/21 14:22 cashew nut Allergy Verified 06/23/21 14:22 cinnamon Allergy Verified 06/23/21 14:22 Egg Derived Allergy Verified 06/23/21 14:22 gabapentin Allergy Verified 06/23/21 14:22 garlic Allergy Verified 06/23/21 14:22 alonso Allergy Verified 06/23/21 14:22 grass pollen-perennial rye, Allergy Verified 06/23/21 14:22 standar iodine Allergy Verified 06/23/21 14:22 lactase [From Dairy Aid] Allergy Verified 06/23/21 14:22 mushroom Allergy Verified 06/23/21 14:22 onion Allergy Verified 06/23/21 14:22 oyster extract Allergy Verified 06/23/21 14:22 Pork/Porcine Containing Allergy Verified 06/23/21 14:22 Products potato Allergy Verified 06/23/21 14:22 soy Allergy Verified 06/23/21 14:22 wheat Allergy Verified 06/23/21 14:22 whey Allergy Verified 06/23/21 14:22 brown rice Allergy Uncoded 06/23/21 14:22 dairy Allergy Uncoded 06/23/21 14:22 goat Allergy Uncoded 06/23/21 14:22 mar Allergy Uncoded 06/23/21 14:22 spelt Allergy Uncoded 06/23/21 14:22 Review of Systems Constitutional Comments: No fevers Cardiovascular Comments: No chest pain Respiratory Comments: No shortness of breath Gastrointestinal Gastrointestinal: Reports as per HPI Integumentary/Breasts Comments: No rashes Patient History Medical History Hypothyroidism Nephrolithiasis Sjogren's syndrome Surgical History History of exploratory laparotomy History of foot surgery History of lithotripsy Status post laparoscopy Family History (Updated 08/15/20 @ 04:46 by MYRON Mckeon) Father Cancer Mother Obese Grandmother Diabetes mellitus Grandmother Thyroid disease Grandfather Structural disorder of heart Social History household members: spouse Smoking Status: Never smoker alcohol intake: former Smoking Status: Never smoker alcohol intake frequency: other Substance Use Type: does not use Exam Initial Vital Signs Initial Vital Signs: Vital Signs Temperature 98 F 06/23/21 14:19 Pulse Rate 65 06/23/21 14:19 Respiratory Rate 17 06/23/21 14:19 Blood Pressure 182/87 H 06/23/21 14:19 Pulse Oximetry 100 06/23/21 14:19 HENMT Head: normal to inspection and normocephalic Resp Effort & Inspection: normal respiratory effort Cardio Rate: regular rate GI Inspection: normal to inspection Palpation: soft and No tender Skin General: no rashes or lesions noted Extrem General: normal to inspection and capillary refill normal Psych Appearance: grossly normal and well kempt Course Orders Ordered: ED Orders 06/23/21 16:27 XR acute abdomen series Stat Discontinued Medications Sodium Biphosphate/Sodium Phosphate (Fleets Enema) 1 each FL NOW ONE Stop: 06/23/21 16:37 Last Admin: 06/23/21 17:15 Dose: 1 each Documented by: GUILLERMO Vital Signs Vital signs: Vital Signs - 8 hr 06/23/21 14:19 06/23/21 18:25 Temperature 98 F Pulse Rate 65 66 Respiratory Rate 17 16 Blood Pressure 182/87 H 156/67 H Pulse Oximetry 100 100 MDM - Recheck/Abnormal Lab/Rx MDM Narrative Medical decision making narrative: Patient has a benign abdominal exam. She was given a fleets enema here in the emergency department and did have a bowel movement. She states she has stopped taking the opioid pain medication. She will stick with Tylenol and ibuprofen. We did discuss a proper bowel regimen for home. She was given return precautions and follow-up instructions. She expressed understanding and agreement. Discharge Plan Departure Patient Disposition: Home Clinical Impression: Constipation Instructions: DI for Constipation Activity Restrictions/Additional Instructions: Sure to follow all of the postoperative instructions given to you by the surgeon. Keep your foot elevated. If you start taking the pain medication again I do recommend medication to help prevent the recurrence of constipation. Return to the emergency department for any new or worsening symptoms. Prescriptions: No Action levothyroxine 50 mcg Tablet 50 mcg PO 0500 RF: 0 diclofenac sodium 75 mg Tablet,Delayed Release (Dr/Ec) 75 mg PO BID RF: 0 cyanocobalamin (vitamin B-12) [Vitamin B-12] 1,000 mcg Tablet 1,000 mcg PO DAILY RF: 0 folic acid 400 mcg Tablet 0.4 mg PO DAILY RF: 0 acetaminophen [Tylenol Extra Strength] 500 mg Tablet 1,000 mg PO Q8H RF: 0 Referrals: Brittney Velasquez ND [Primary Care Provider] -
[2021-06-23] MEDS: FLEETS ENEMA 1 EACH PR (17:15)
--- NOTE | 2021-06-23 18:00 | PC.NURSE ---
Successful enema output of multiple lumps of hard stool. Pt states she feels relief, and still some abd cramping.
[2021-06-23 18:25] VITALS: BP 156/67; PULSE 66; RESP 16; O2SAT 100
== END 2021-06-23 18:25 | disposition home or self-care (01) ==
PROVIDERS: Emergency Provider Emergency Medicine; PCP Naturopath
DX: K59.00 Constipation, unspecified (principal)
CPT/HCPCS: 74022; 99283; 99284

== ENCOUNTER → 2024-04-07 07:09 | Outpatient (CLI) | payer OTHER, SELFPAY ==
[2020-08-15 02:45] VITALS: BMI 23.6
--- NOTE | 2024-04-07 07:10 | DI.US.S_ITS ---
PROCEDURE: US PELVIC COMPLETE INDICATIONS: Postmenopausal bleeding TECHNIQUE: Real-time scanning was performed of the pelvic organs, with image documentation. Additional endovaginal scanning was necessary due to incomplete visualization of the adnexal and endometrial structures by transabdominal scanning. COMPARISON: None. FINDINGS: Uterus: Uterus is anteverted and normal in size at 5.6 x 2.7 x 3.5 cm. The myometrium is homogeneous. The endometrium measures 4 mm combined thickness. Ovaries: The right ovary measures 2.1 x 1.1 x 1.1 cm, with a calculated ovarian volume of 1.3 cc. The left ovary measures 2.4 x 1.3 x 1.7 cm, with a calculated ovarian volume of 2.8 cc. The ovaries have a normal sonographic appearance. Less than 12 follicles can be seen in each ovary. No adnexal masses are seen. Other: No pathologic free abdominal or pelvic fluid. IMPRESSION: Unremarkable exam. We strive to produce accurate, complete, and clear reports of imaging services. To assist us in improving patient care, this report was composed using standard report templates and voice recognition software. Therefore, it may contain abnormal punctuation, insertions and/or omissions. Occasional wrong-word or sound-alike substitutions may occur. Though we review the report and make efforts to correct it, we do recommend that the report be read carefully in proper context to recognize any text inaccuracies. Dictated by: Susie Sanchez M.D. on 04/07/2024 at 11:43 Approved by: Susie Sanchez M.D. on 04/07/2024 at 11:43
== END ==
PROVIDERS: PCP Naturopath; Referring Provider Naturopath; Visit Provider Naturopath
DX: N95.0 Postmenopausal bleeding (principal)
CPT/HCPCS: 76856